=== PATIENT | female | born 1965 | race Caucasian/White ===

== ENCOUNTER 2022-07-28 11:26 | Outpatient (REF) | payer MEDICAID, SELFPAY ==
[2022-07-28 14:45] LABS: Abs Immature Grans 0.01 10^3/uL (0.0-0.06); Absolute Basophil Count 0.09 10^3/uL (0.0-0.2); Absolute Eosinophil Count 0.18 10^3/uL (0.0-0.7); Absolute Lymphocyte Count 2.27 10^3/uL (1.2-3.4); Absolute Monocyte Count 0.57 10^3/uL (0.1-0.8); Absolute Neutrophil Count 3.88 10^3/uL (1.2-6.7); Basophils % 1.3; Eosinophils % 2.6; HCT 35.3 % (36.0-46.0); HGB 12.3 g/dL (11.2-15.7); Immature Grans % 0.1; Lymphocytes % 32.4; MCH 30.9 pg (27.0-33.0); MCHC 34.8 % (32.0-36.0); MCV 89 fL (80-95); MPV 10.2 fL (8.0-11.0); Monocytes % 8.1; Neutrophils % 55.5; Platelet Count 317 10^3/uL (130-400); RBC 3.98 10^6/uL (3.93-5.22); RDW 12.7 % (11.7-14.6); RDW-SD 41.7 fL
[2022-07-28 14:56] LABS: ALT 24 U/L (14-59); AST 25 U/L (15-37); Albumin 3.9 g/dL (3.4-5.0); Alkaline Phosphatase 56 U/L (46-116); Anion Gap 6.1 mmol/L (3-11); BUN 15 mg/dL (7-18); Bilirubin, Total 0.6 mg/dL (0.2-1.0); CO2 28.9 mmol/L (21.0-32.0); CREATININE 0.8 mg/dL (0.55-1.02); Chloride 99 mmol/L (98-107); Glucose 98 mg/dL (74-106); Potassium 4.4 mmol/L (3.5-5.1); Sodium 134 mmol/L (136-145); Total Protein 7.6 g/dL (6.4-8.2)
== END 2022-07-28 11:27 | disposition home or self-care (01) ==
LOC: NCHCN 11:26
PROVIDERS: Visit Provider Nurse Practitioner Family
DX: Z01.818 Encounter for other preprocedural examination (principal)
CPT/HCPCS: 80053; 85025

== ENCOUNTER 2022-10-29 17:51 | Outpatient (REF) | payer MEDICAID, SELFPAY ==
--- NOTE | 2022-10-29 16:28 | SKI_PTH ---
PATIENT: Sherrie Lugo LOC: [facility]#:[id number] AGE/SX: 57/F ROOM: RE10/29/[address]: Yessi Ac : 1965 BED: DIS: 10/29/2022 SPEC #: [id number] RECD: 10/30/22 12:50 STATUS: LIBAN REEster #: [id number] STAR: 10/29/22 16:[address]: Yessi Ac DEPT: Surgical Specimen RECD BY: Georgia Johnson Tissues: 1 - SKIN BIOPSY(SHAVE/PUNCH) Procedures: SKIN LEVEL 4 Comments: [id number]
== END 2022-10-29 17:52 | disposition home or self-care (01) ==
LOC: NCHCN 17:51
PROVIDERS: Visit Provider Family Medicine
DX: L82.1 Other seborrheic keratosis (principal)
CPT/HCPCS: 88305

== ENCOUNTER 2022-10-29 17:56 | Outpatient (REF) | payer MEDICAID, SELFPAY ==
[2022-10-29 20:54] LABS: HCT 36.2 % (36.0-46.0); HGB 12.4 g/dL (11.2-15.7); MCH 30.1 pg (27.0-33.0); MCHC 34.3 % (32.0-36.0); MCV 88 fL (80-95); Platelet Count 305 10^3/uL (130-400); RBC 4.12 10^6/uL (3.93-5.22); RDW 12.6 % (11.7-14.6); RDW-SD 40.5 fL; WBC 6.63 10^3/uL (4.4-10.8)
== END 2022-10-29 17:57 | disposition home or self-care (01) ==
LOC: LBN 17:56
PROVIDERS: PCP Family Medicine; Visit Provider Family Medicine
DX: R59.0 Localized enlarged lymph nodes (principal)
CPT/HCPCS: 85027

== ENCOUNTER 2023-09-20 10:46 | Outpatient (REF) | payer BC, SELFPAY ==
[2023-09-20 14:26] LABS: Anion Gap 5.8 mmol/L (3-11); BUN 12 mg/dL (7-18); CO2 28.2 mmol/L (21.0-32.0); CREATININE 0.8 mg/dL (0.55-1.02); Calcium 8.8 mg/dL (8.5-10.1); Calculated LDL 120 mg/dL (<100); Chloride 100 mmol/L (98-107); Cholesterol 232 mg/dL (<200); Estimated GFR 86.42 (mL/min/1.73m2); Glucose 95 mg/dL (74-106); HDL Cholesterol 104 mg/dL (40-60); Potassium 3.9 mmol/L (3.5-5.1); Sodium 134 mmol/L (136-145); Triglyceride 40 mg/dL (<150)
== END 2023-09-20 10:47 | disposition home or self-care (01) ==
LOC: NCHCN 10:46
PROVIDERS: PCP Family Medicine; Visit Provider Family Medicine
DX: Z00.00 Encounter for general adult medical examination without abnormal findings (principal); Z13.220 Encounter for screening for lipoid disorders
CPT/HCPCS: 80048; 80061

== ENCOUNTER 2023-09-30 15:14 | Outpatient (REF) | payer BC, SELFPAY ==
--- NOTE | 2023-09-30 14:20 | PAPFT_PTH ---
PATIENT: Sherrie Lugo LOC: [facility] U#:[id number] AGE/SX: 58/F ROOM: RE09/30/[address]: Yessi Ac : 1965 BED: DIS: 09/30/2023 SPEC #: [id number] RECD: 10/01/23 13:05 STATUS: LIBAN REEster #: [id number] STAR: 09/30/23 14:[address]: Yessi Ac DEPT: [facility] Cytology RECD BY: Georgia Johnson Tissues: 1 - CX/ENDOCX FOR PAP SMEARS Procedures: PAP THIN PREP/[facility] Screening HPV DNA PROBE Comments: [id number]
== END 2023-09-30 15:15 | disposition home or self-care (01) ==
LOC: NCHCN 15:14
PROVIDERS: PCP Family Medicine; Visit Provider Family Medicine
DX: Z00.00 Encounter for general adult medical examination without abnormal findings (principal)
CPT/HCPCS: 88142; 87624